=== PATIENT | male | born 1970 | race Caucasian/White ===

== ENCOUNTER → 2024-06-30 13:23 | Outpatient (REF) | payer BC, SELFPAY | LOC: RCS 13:23 | PROVIDERS: ATTENDING PHYSICIAN Internal Medicine Cardiovascular Disease; FAMILY PHYSICIAN Family Medicine | DX: R07.2 Precordial pain (principal); R06.09 Other forms of dyspnea | CPT/HCPCS: 93017; 93350 ==

== ENCOUNTER → 2024-09-28 09:33 | Outpatient (REF) | payer BC, SELFPAY | LOC: HWRAD 09:33 | PROVIDERS: ATTENDING PHYSICIAN Physician Assistant; FAMILY PHYSICIAN Internal Medicine; REFERRING PHYSICIAN Internal Medicine | DX: R10.9 Unspecified abdominal pain (principal) | CPT/HCPCS: 76700 ==

== ENCOUNTER → 2024-10-22 09:39 | Outpatient (REF) | payer BC, SELFPAY | LOC: RAD 09:39 | PROVIDERS: ATTENDING PHYSICIAN Internal Medicine; FAMILY PHYSICIAN Internal Medicine | DX: R10.13 Epigastric pain (principal); R11.0 Nausea | CPT/HCPCS: 74177; Q9967 ==

== ENCOUNTER 2025-06-20 13:39 | Emergency (ER) | payer BC, SELFPAY ==
[2025-06-20] VITALS (11 sets, daily range): BP systolic 143–173; BP diastolic 86–110; BMI 27.4
[2025-06-20 14:04] LABS: Hematocrit 44.7 % (39.0-52.0); Hemoglobin 15.0 g/dL (13.0-18.0); Mean Corp Hgb Conc. 33.6 g/dL (33.0-37.0); Mean Corpuscular Volume 85.3 fL (80.0-94.0); Nucleated Red Blood Cells % 0 % (-); Platelet Count 290 10^3/uL (130-400); Red Cell Dist. Width 12.7 % (11.5-14.5)
[2025-06-20 14:17] LABS: ALT (SGPT) 29 U/L (0-50); AST (SGOT) 30 U/L (17-59); Albumin 4.9 g/dl (3.5-5.0); Alkaline Phosphatase 76 U/L (38-126); Blood Urea Nitrogen 17 mg/dl (9-20); Calcium 9.1 mg/dl (8.4-10.2); Carbon Dioxide 22 mmol/L (22-30); Chloride 104 mmol/L (98-107); Estimated Creatinine Clearance 77 ml/min; Glucose 104 mg/dl (70-99); Potassium 3.7 mmol/L (3.5-5.1); Sodium 136 mmol/L (135-145); Total Protein 8.0 g/dl (6.3-8.2); eGFR > 60.00
[2025-06-20 14:21] LABS: APTT 25.6 Sec (23.4-35.0); INR 0.95; PT 13.0 Sec (11.4-14.6)
--- NOTE | 2025-06-20 14:22 | ED.GENMED ---
History of Present Illness
General
Chief Complaint: Cardiac Symptoms
Source: patient
Time Seen by Provider: 06/20/25 14:04
Nursing documentation reviewed up to this point in time: agreed with
History of Present Illness
History of Present Illness:
Note:
CHIEF COMPLAINT(S)
Dizziness, chest pain, headache, lightheadedness, and tingling in hands.
HISTORY OF PRESENT ILLNESS
The patient is a 54-year-old male presenting with symptoms of dizziness, lightheadedness, headache, and chest pain. The patient reports feeling dizzy, likening it to the sensation of having a blood pressure cuff on the arm. The dizziness has been
present intermittently over the past six months and is exacerbated when looking up, resulting in a blurred vision. There has also been tingling in the hands for a similar duration. The patient describes a more acute onset of chest pain approximately
one hour prior to presentation. The pain is described as localized to the chest area but is noted to be tender upon palpation which reduces the immediate concern for an underlying cardiac cause. The patient also reports pain radiating to the jaw and
the back of the head. When the headache is pressed, the patient experiences discomfort.
Past tests conducted include an electrocardiogram (EKG), which was normal, importantly reducing immediate cardiac concerns. The patient has experienced these symptoms intermittently for six months, but today�s exacerbation prompted the visit. They
describe a sensation of light-headedness, and upon exerting pressure on the head or neck, they reported tenderness.
PHYSICAL EXAM
General: Alert, no acute distress.
Skin: Warm, dry.
Head: Normocephalic, atraumatic.
Neck: Supple, trachea midline.
Eyes, Ears, Nose, Mouth, and Throat: Oral mucosa moist.
Cardiovascular: Normal peripheral perfusion, No edema. S1, S2, no murmur. left chest wall tender to palpation
Respiratory: Respirations are non-labored.
Gastrointestinal: Abdomen nondistended.
Back: Normal range of motion, Normal alignment.
Musculoskeletal: Normal range of motion, normal strength.
Neurological: Alert and oriented to person, place, time, and situation, No focal neurological deficit observed.
Psychiatric: Cooperative, appropriate mood and affect.
PLAN
1. A CT scan of the head to investigate the cause of the headache and dizziness.
2. Ultrasound of the leg to check for possible deep vein thrombosis due to reports of limb symptoms.
3. D-dimer test to screen for blood clots.
4. Consider further investigation with a CT scan of the chest if initial tests indicate the need.
DIFFERENTIAL DIAGNOSIS
The Differential Diagnosis includes, in no particular order and is not limited to:
1. Vestibular disorder
2. Hypertension
3. Myocardial ischemia
4. Cervical spondylosis
5. Persistent atrial fibrillation
6. Anxiety disorder
7. Migraine or tension-type headache
8. Cervicogenic headache
9. Hyperventilation syndrome
10. Neurological disorder, such as multiple sclerosis
CARE-UPDATE
06/20/25 - 15:52
Troponin and D-Dimer are within normal limits. EKG shows no abnormalities. Plan to conduct CT angiography of head and neck to rule out vertebral dissection, cranial hemorrhage, or tumor. Pending repeat troponin results. If negative, the patient will
be considered stable for discharge home.
CARE-UPDATE
06/23/25 - 06:59
Patients left-sided chest pain is musculoskeletal in nature. Chronic headache persists, but no acute issues noted. No indication of DVT or tendon tear. Patient stable for discharge and will continue follow-up with primary care and cardiology.
Coordination of care with Dr. Boggs during workup confirmed.
EKG
My independent EKG interpretation is:
- Time of EKG: Not specified
- Rhythm: Normal sinus rhythm
- Heart Rate: 85 bpm
- [place] Interval: Normal
- QRS Duration: Normal
- QT Interval: Normal
- [place]: Normal
- Abnormalities: None observed
- ST Segment Changes: None
- T Wave Inversions: None
- Arrhythmias: None
- Comparison to Prior EKG: No change from prior EKG
Disposition:
SUMMARY OF ENCOUNTER
The patient is a 54-year-old male presenting with dizziness, chest pain, headache, and tingling in the hands. The chest pain was acute, and although initially concerning for a cardiac issue, it was determined to be musculoskeletal in nature. The
patients headaches and dizziness have been persistent for six months. Various tests were conducted, including an EKG, which was normal and showed no signs of myocardial ischemia. A CT angiography of the head and neck was performed to investigate
more serious neurological conditions, but no acute issues were noted. Ultimately, the patient was stabilized, and given the non-critical findings upon reevaluation, discharge was planned.
DISPOSITION
Discharge.
ASSESSMENT
The patients symptoms suggest a musculoskeletal chest pain, likely cervicogenic headache, or migraine without acute issues on scans. Laboratory evaluations ruled out acute coronary syndrome (ACS), stroke (CVA), pulmonary embolism (PE), and deep vein
thrombosis (DVT).
PLAN
1. Discharge the patient home with instructions to rest and monitor symptoms.
2. Schedule follow-up with cardiology and primary care for ongoing management.
3. Provide return precautions for any worsening conditions.
INDEPENDENT REVIEW OF LABS AND INTERPRETATION OF TESTS
- My independent review of D-dimer is within normal limits.
- My independent review of EKG shows normal sinus rhythm, heart rate 85 bpm, normal [place], QRS, and QT intervals, with no abnormalities or arrhythmias.
- My independent review of CT angiography of head and neck is unremarkable, not indicating any vertebral dissection or hemorrhage.
PATIENT EDUCATION AND COUNSELING
The patient was counseled on the musculoskeletal nature of the chest pain and reassured about the normal cardiac evaluations. He was advised on the recognition of signs that would require prompt medical attention.
FOLLOW-UP INSTRUCTIONS
Follow up with cardiology and primary care promptly to ensure continuity of care and further evaluation as necessary.
MEDICAL DECISION MAKING
-Complexity of Data Reviewed: Chronic conditions affecting care include hypertension and differential diagnoses such as vestibular disorder, migraine, tension-type headache, cervicogenic headache, and possible neurological disorders.
-Data:
Category 1
My independent interpretation of EKG: Normal sinus rhythm, no abnormalities.
My independent review of CT angiography of head and neck: Unremarkable.
Category 3
Discussion of management with fudge candy maker: Coordination with Dr. Boggs during the workup.
-Risk:
Consideration of Admission/Observation: Escalation of care including admission/observation was considered given the complexity and risk of the patients presenting complaint and their underlying comorbidities. However, ultimately I feel the patient
is safe for outpatient management with close follow-up. Reasoning: Work-up reassuring, does not reveal any acute life/organ threatening processes, patients symptoms well controlled upon reevaluation, reexamination is reassuring, vitals are stable,
patient agreeable with discharge, reliable for follow-up.
DIAGNOSIS
- Musculoskeletal chest pain (ICD-10: R07.89)
- Cervicogenic headache (ICD-10: G44.841)
- Dizziness (ICD-10: R42)
Past History
Past History
ED Past Medical History: Hypercholesterolemia
ED Past Surgical History: None
Social History
Tobacco: Non-smoker
Alcohol: None
Phy Exam
Physical Exam
Physical Exam:
.
Course
Orders/Labs/Results
Orders:
Orders
06/20/25 13:40
EKG [Electrocardiogram (*1)] Urgent
Reason for Study: Tachycardia
EKG- Treatment ONCE
06/20/25 13:54
Complete Blood Count/With Diff Urgent
Comprehensive Metabolic Panel Urgent
D-Dimer Urgent
Comment: ADD ON
PT/INR [Prothrombin Time] Urgent
PTT Urgent
Troponin I Urgent
06/20/25 14:15
Add On- LAB Urgent
Tests Added?: D dimer
IV Insert/Care/Rem.- Treatment PRN
US Legs, Left [US Periph Venous LOWER Ext LT] Urgent
Comment:
Reason For Exam: left calf pain
06/20/25 15:05
CT Head & Neck Angio W/wo IV Urgent
Comment:
Reason For Exam: posterior headache, bilateral arm paresthesias
06/20/25 17:19
Troponin I Urgent
Abnormal Lab Results
06/20/25
13:54
Abs Immat Gran (auto) 0.1 H 10^3/uL
(0-0.05)
Absolute Lymphs (auto) 4.1 H 10^3/uL
(1.2-3.4)
Absolute Monos (auto) 0.8 H 10^3/uL
(0.1-0.6)
Glucose 104 H mg/dl
(70-99)
06/20/25 13:54
06/20/25 13:54
Vital Signs
Initial and Last Documented VS:
Initial Vital Signs
Temp Pulse Resp BP Pulse Ox
98.4 F 74 16 173/105 100
06/20/25 13:48 06/20/25 13:48 06/20/25 13:48 06/20/25 13:48 06/20/25 13:48
Last Documented Vital Signs
Temp Pulse Resp BP Pulse Ox
98.4 F 83 16 145/86 99
06/20/25 13:48 06/20/25 18:46 06/20/25 18:46 06/20/25 18:46 06/20/25 18:46
*Pulse Oximetry
SaO2: 100
Oxygen Mode of Delivery: Room air
Patient hypoxic: no
*Critical Care Note
Total Time (30-74mins, 75-104mins- exclusive of procedures): Not Applicable
ED Attending Note
-
Portions of this chart may have been created with voice recognition software.� Occasional wrong word or��sound alike� substitutions may have occurred due to the inherent limitations of voice recognition software.
Discharge Plan
Departure
Patient Disposition: Home (Routine Discharge)
Date of Disposition: 06/20/25
Time of Disposition: 18:09
Patient with high blood pressure during this ER visit?: Yes
Discharge Problem:
Chest pain, Pain of left calf, Headache
Instructions: Chest Pain CBC Follow Up, BLOOD PRESSURE
Referrals:
Michael Lainez MD [Family Provider, Internal Medicine]
Jhonatan Boggs MD [Active, Cardiology]
Activity Restrictions/Additional Instructions:
2 sets of cardiac blood test were normal. CTA shows no acute abnormality of the brain or blood vessels in the head and neck. Follow-up with Dr. Boggs. Return here if worse or other concerns.
Interventions
Interventions:
*General Assessment Last Done: 06/20/25 14:23
*Neglect/Abuse Screening Last Done: 06/20/25 14:23
*ED- Fall Risk Assessment Last Done: 06/20/25 14:23
*Nursing Disposition Last Done: 06/20/25 18:46
ED- Cardiac Assessment Last Done: 06/20/25 14:24
ED- Pulmonary Assessment Last Done: 06/20/25 14:24
Discharge Date and Time
Discharge Date/Time: 06/20/25 18:46
Print Language: PALAUAN
[2025-06-20 14:27] LABS: Troponin I < 0.012 ng/ml
[2025-06-20 14:57] LABS: D-Dimer < 0.27 ug/mlFEU (0.00-0.50)
[2025-06-20 17:59] LABS: Troponin I < 0.012 ng/ml
--- NOTE | 2025-06-20 18:45 | EDRN ---
Reviewed discharge instructions with patient. Verbalized understanding. Ambulated with steady gait to the lobby.
== END 2025-06-20 18:46 | disposition home or self-care (01) ==
LOC: EMR 13:39
PROVIDERS: Emergency Medicine; EMERGENCY PHYSICIAN Emergency Medicine; FAMILY PHYSICIAN Internal Medicine
DX: R07.89 Other chest pain (principal); G44.86 Cervicogenic headache; M79.662 Pain in left lower leg; R42 Dizziness and giddiness; E78.00 Pure hypercholesterolemia, unspecified
CPT/HCPCS: 99284; 70496; 70498; 80053; 84484; 85025; 85379; 85610; 85730; 93005; 93971; Q9967